=== PATIENT | male | born 1990 | race Caucasian/White ===

== ENCOUNTER 2019-11-03 14:59 | Outpatient (CLI) | payer MEDICAID | END 2019-11-03 15:00 | disposition critical access hospital (66) | LOC: EMS 14:59 | PROVIDERS: ATTEND Surgery | DX: R20.0 Anesthesia of skin (principal); R53.1 Weakness | CPT/HCPCS: A0425; A0429 ==

== ENCOUNTER 2019-11-03 15:17 | Emergency (ER) | payer MEDICAID ==
[2019-11-03 15:33] VITALS: BP 129/72
--- NOTE | 2019-11-03 16:16 | ED Physician Documentation ---
History of Present Illness - Stated complaint Stated Complaint: RT SHOULDER NUMBNESS - Chief complaint Chief Complaint: General - History obtained from History obtained from: Patient, EMS - History of Present Illness Timing: Enter time (899), Today - Additonal information Additional information: Patient 29-year-old male was at home today when he began to experience some pain in his right shoulder and his right leg and he was confused by a bit of this and he called his sister who eventually told him to call the ambulance thinking he might be having a stroke. He was evaluated by the medics found to have a low blood sugar the give him some oral glucose and his pain went away. He would like to be discharged now Review of Systems Constitutional: denies: Fever Eyes: denies: Decreased vision Ears: denies: Ear pain Nose: denies: Congestion Throat: denies: Sore throat Cardiac: denies: Chest pain / pressure, Palpitations Respiratory: denies: Dyspnea, Cough GI: denies: Abdominal Pain, Nausea, Vomiting : denies: Dysuria, Frequency Skin: denies: Rash Musculoskeletal: reports: Extremity pain. denies: Neck pain, Back pain, Extremity swelling Neurologic: denies: Generalized weakness, Focal weakness, Numbness, Difficulty speaking, Confused, Altered mental status, Headache, Head injury, LOC PD ED PE NORMAL - Vitals Vital signs reviewed: Yes (normal ) - General General: Alert and oriented X 3, No acute distress, Well developed/nourished - HEENT HEENT: Atraumatic, PERRL, EOMI, Moist mucous membranes - Neck Neck: Supple, no meningeal sign - Cardiac Cardiac: RRR, No murmur - Respiratory Respiratory: No respiratory distress - Derm Derm: Normal color, Warm and dry, No rash - Extremities Extremities: No deformity, Normal ROM s pain, No edema, Other (speifically no tenderness/swelling or redness) - Neuro Neuro: Alert and oriented X 3, seconds inspector 2-12 intact, No motor deficit, No sensory deficit, Normal speech Eye Opening: Spontaneous Motor: Obeys Commands Verbal: Oriented GCS Score: 15 - Psych Psych: Normal mood, Normal affect Results - Vitals Vitals: Vital Signs - 24 hr 11/03/19 15:23 Temperature 37 C Heart Rate 79 Respiratory 20 Rate Blood Pressure 129/72 O2 Saturation 96 Oxygen O2 Source Room air - Labs Labs: Laboratory Tests 11/03/19 16:07 POC Whole Bld Glucose 115 H PD MEDICAL DECISION MAKING - ED course Complexity details: considered differential, d/w patient ED course: 29-year-old male with resolved symptoms would like to go home. I suspect his symptoms were resulted from his hypoglycemia. The patient does eat frequently and states that today he did not have his usual amount to eat. I have encouraged him to decrease his oral intake to reinstitute his utilization of glycogen stores. Departure - Departure Disposition: 01 Home, Self Care Clinical Impression: Hypoglycemia Condition: Stable Instructions: ED Blood Sugar Low Non Diabetic Follow-Up: Your, doctor [Other] Discharge Date/Time: 11/03/19 16:23
== END 2019-11-03 16:23 | disposition home or self-care (01) ==
LOC: ED 15:17
DX: E16.2 Hypoglycemia, unspecified (principal)
CPT/HCPCS: 80053; 83690; 83735; 84100; 85025; 99283